=== PATIENT | female | born 1990 | race Caucasian/White ===

== ENCOUNTER 2017-01-20 11:50 | Emergency (ER) | payer BC ==
[~2017-01-20] VITALS: Ht 175.3 cm; Wt 79.3 kg
[2017-01-20 11:53] VITALS: BP 137/72; PULSE 78; TEMP 97.7
[2017-01-20] MEDS ORDERED: CLOMID50 MG (12:04)
[2017-01-20] MEDS ORDERED: PROVERA5 MG (12:04)
[2017-01-20 12:45] LABS: BASO % 0.5 % (0.0-2.0); EOS # 0.1 (0.0-0.7); EOS % 1.8 % (0-4.0); GRAN % 61.7 % (42.2-75.2); HEMOGLOBIN 12.1 g/dl (12.5-16.0); LYMPH # 1.8 (1.2-3.4); LYMPH % 27.7 % (20.0-51.0); MEAN CELL VOLUME 78 fl (80.0-100.0); MEAN CORPUSCULAR HEMOGLOBIN 26 pg (27.0-31.0); MEAN CORPUSCULAR HGB CONC 34 g/dl (33.0-37.0); MEAN PLATELET VOLUME 10.3 fl (7.4-10.4); MONO # 0.5 (0.1-0.6); MONO % 7.8 % (1.7-9.3); PLATELET COUNT 242 K/mm3 (130-400); REDCELL DISTRIBUTION WIDTH-CV 13.2 % (11.5-14.5); WHITE BLOOD COUNT 6.5 K/mm3 (4.8-10.8)
[2017-01-20 12:46] LABS: HEMATOCRIT 35.9 % (37.0-47.0)
[2017-01-20 12:52] LABS: CALCIUM 9.4 mg/dL (8.4-10.2); CREATININE, serum 0.75 mg/dL (0.52-1.25); POTASSIUM 3.7 mmol/L (3.4-5.0)
[2017-01-20] MEDS ORDERED: PROVERA 10MG10 MG PO ×2 (13:00→13:11)
== END 2017-01-20 13:12 | disposition home or self-care (01) ==
LOC: COL.ER 11:50
PROVIDERS: Emergency Medicine
DX: N93.8 Other specified abnormal uterine and vaginal bleeding (principal)